=== PATIENT | male | born 1985 | race Caucasian/White ===

== ENCOUNTER 2023-04-02 19:43 | Emergency (ER) | payer OTHER, SELFPAY ==
[2023-04-02 19:46] VITALS: BP 140/75; PULSE 102; RESP 15; TEMP 37.6; O2SAT 99
[2023-04-02 20:12] VITALS: BMI 40.4
--- NOTE | 2023-04-02 21:09 | EKG12_ITS ---
Test Reason : DYSRHYTHMIA Blood Pressure : / mmHG Vent. Rate : 085 BPM Atrial Rate : 085 BPM P-R Int : 154 ms QRS Dur : 124 ms QT Int : 378 ms P-R-T Axes : 041 020 027 degrees QTc Int : 449 ms Normal sinus rhythm Normal ECG Confirmed by MAMI ELLISON, JACLYN ([id number]), offline editor YOEL BALTAZAR ([id number]) on 04/04/2023 1:24:17 PM Referred By: PL Confirmed By:YARI BOLAÑOS MD
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
[2023-04-02] MEDS: Morphine 4 MG/ML Syringe IV ×2 (21:28→23:33)
[2023-04-02] MEDS: Ondansetron 4 MG/2 ML Vial IV (21:29)
[2023-04-02 21:37] LABS: Absolute Neutrophil Count 10.1 X10^3/uL (2.0-7.7); Basophil# 0.05 X10^3/uL; Basophil% 0.4 % (0-1); Eosinophil# 0.14 X10^3/uL; Eosinophils% 1.2 % (0-5); Hematocrit 42.7 % (40-54); Hemoglobin 13.7 g/dL (13.0-16.5); Mean Corp Hgb Conc 32.1 g/dL (32-36); Mean Corpuscular Hgb 27.4 pg (27.0-32.0); Mean Corpuscular Volume 85.4 fL (80-94); Mean Platelet Vol. 11.8 fl (6.2-12.0); Monocyte# 0.69 X10^3/uL; Monocyte% 5.9 % (0-10); NRBC Flagged by Analyzer 0 % (0-5); Neutrophil # 10.05 X10^3/uL (2.7-7.7); Neutrophil % 86.2 % (47-70); Platelet Count 228 K/mm3 (150-450); RBC Distribution Width CV 13.4 % (11.6-14.6); RBC Distribution Width SD 41.5 fl (35.1-43.9); White Blood Count 11.7 K/mm3 (4.4-11.0)
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
--- NOTE | 2023-04-02 21:50 | RAD_ITS ---
INDICATION: pain, fever EXAMINATION/TECHNIQUE: X-RAY - XR Chest 1 View COMPARISON: None. FINDINGS: LINES/DEVICES: None. LUNGS: Mild bibasilar opacities. Small left pleural effusion. No pneumothorax detected. MEDIASTINUM AND CARDIOVASCULAR STRUCTURES: Heart size within normal limits. Mediastinal contours unremarkable. BONES AND SOFT TISSUES: No acute findings. RAD/Chest 1 View (Portable) IMPRESSION: Bibasilar opacities and small left pleural effusion Electronically Signed: Terry Cruz MD at 22:19 EDT ,
[2023-04-02 21:58] LABS: ALB/GLOB Ratio 0.9 RATIO (0.9-2.4); AST(SGOT) 13 U/L (15-37); Alanine Aminotransfer ALT/SGPT 28 U/L (16-61); Albumin, Serum 3.5 g/dL (3.2-5.0); Alkaline Phosphatase 46 U/L (45-117); Anion Gap 6 (5-15); BUN 13 mg/dL (7-18); BUN/Creat Ratio 14.8 RATIO (10-20); Calcium,Total 9.2 mg/dL (8.5-10.1); Chloride 104 mmol/L (98-107); Creatinine, Serum 0.88 mg/dL (0.70-1.30); EST Glomerular Filtration Rate 105 mL/min (>60); Est Glom Filt Rate - Afr Amer 127 mL/min (>60); Estimated Creatinine Clearance 136.22 ml/min; Glucose 92 mg/dL (74-106); Lipase 12 U/L (13-75); Potassium 3.4 mmol/L (3.5-5.1); Protein, Total 7.5 g/dL (6.4-8.2); Sodium Level 137 mmol/L (136-145)
[2023-04-02 23:43] LABS: Bacteria 0 SEEN /hpf (None Seen); Color, Urine Yellow (Yellow); Glucose, Dipstick Normal (Normal); Ketone-Dipstick Negative (Negative); Leukocyte Esterase-Dipstick 25 /ul (Negative); Mucous, Urine 0 SEEN /hpf (<or=2+); Nitrite-Dipstick Negative (Negative); Occult Blood-Urine 25 /ul (Negative); Protein-Dipstick 30 mg/dl (Negative); Red Blood Cells-Urine 0 SEEN /hpf (0-5); Specific Gravity, Urine 1.005 (1.002-1.030); Squamous Epithelial Cells - UA 0 SEEN /hpf (0-5); Urine Bilirubin Dipstick Negative (Negative); Urine Clarity Clear (Clear); Urine Urobilinogen 4 mg/dl (Normal); White Blood Cells 0 SEEN /hpf (0-5)
[2023-04-03 00:02] VITALS: BP 135/98; PULSE 95; RESP 18; TEMP 36.6; O2SAT 98
[2023-04-03] MEDS: HYDROmorphone 0.5 MG/0.5 ML SYRINGE IV (00:52)
== END 2023-04-03 01:05 | disposition home or self-care (01) ==
PROVIDERS: Emergency Provider Emergency Medicine; PCP Nurse Practitioner Family; Visit Provider Emergency Medicine
DX: S36.031A Moderate laceration of spleen, initial encounter (principal); V86.35XA Unspecified occupant of 3- or 4- wheeled all-terrain vehicle (ATV) injured in traffic accident, initial encounter; M25.512 Pain in left shoulder; R50.9 Fever, unspecified
CPT/HCPCS: 71045; 74177; 80053; 81001; 83690; 85025; 93005; 96374; 96375; 96376; 99283; Q9967; A4216; J2405